=== PATIENT | male | born 1995 | race American Indian/Alaskan Native ===

== ENCOUNTER 2019-05-23 04:28 | Emergency (ER) | payer SELFPAY ==
[2019-05-23 05:55] VITALS: BP 115/58
== END 2019-05-23 05:00 | disposition left against medical advice (07) ==
LOC: ED 04:28
DX: J02.9 Acute pharyngitis, unspecified (principal); Z53.21 Procedure and treatment not carried out due to patient leaving prior to being seen by health care provider